=== PATIENT | female | born 1975 | race Caucasian/White ===

== ENCOUNTER 2017-02-20 08:12 | Inpatient (IN) | payer OTHER ==
[~2017-02-20 08:12] MED LIST: IBUP-2070 PO
[2017-02-20] MEDS ORDERED: RINGERS SOLUTION,LACTATED 1,000 ML IV PRN (09:55)
[2017-02-20] MEDS ORDERED: CITRIC ACID/SODIUM CITRATE 30 ML SOLUTION UDCUP PO PRN (10:00)
[2017-02-20] MEDS ORDERED: METOCLOPRAMIDE HCL 5 MG/ML 2 ML VIAL IVP PRN (10:00)
[2017-02-20 10:25] LABS: BASOPHILS % (AUTO) 0.4 % (0.0-2.0); EOSINOPHILS % (AUTO) 2.1 % (1.0-6.0); HEMATOCRIT 37.8 % (36-46); HEMOGLOBIN 12.3 g/dL (12.0-16.0); LYMPHOCYTES # (AUTO) 1.9 K/uL (1.0-4.8); LYMPHOCYTES % (AUTO) 20.9 % (22.0-44.0); MEAN CORPUSCULAR HEMOGLOBIN 30.4 pg (26.0-34.0); MEAN CORPUSCULAR HGB CONC 32.7 G/dL (31.0-37.0); MEAN CORPUSCULAR VOLUME 93 fL (80-100); MONOCYTES # (AUTO) 0.7 K/uL (0.1-1.0); MONOCYTES % (AUTO) 7.8 % (2.0-9.0); NEUTROPHILS # (AUTO) 6.4 K/uL (1.8-7.7); NEUTROPHILS % (AUTO) 68.8 % (40.0-70.0); RED BLOOD CELL COUNT(AUTO) 4.05 MIL/uL (4.00-5.20); RED CELL DISTRIBUTION WIDTH 13.5 % (11.5-14.5); WHITE BLOOD COUNT (AUTO) 9.3 K/uL (4.5-11.0)
[2017-02-20] MEDS ORDERED: OXYTOCIN 30 UNITS/LACT RINGERS 500 ML IV PRN (10:31)
[2017-02-20] MEDS ORDERED: OXYTOCIN 30 UNITS/LACT RINGERS 500 ML IV ONE (10:32)
[2017-02-20] MEDS: RINGERS SOLUTION,LACTATED 1,000 ML IV SCH ×2 (10:33→12:01)
[2017-02-20] MEDS ORDERED: FentaNYL/BUPIV 0.125%/NS/PF 200 ML ED ONE (11:34)
[2017-02-20] MEDS ORDERED: PREN1TAB80 PO (12:05)
[2017-02-20] MEDS ORDERED: FentaNYL/BUPIV 0.125%/NS/PF 200 ML ED PRN (12:18)
[2017-02-20] MEDS ORDERED: PROMETHAZINE HCL 12.5 MG in SODIUM CHLORIDE 0.9% 50 ML IV PRN (12:30)
[2017-02-20] MEDS ORDERED: NALBUPHINE HCL 10 MG/ML VIAL IVP PRN (12:30)
[2017-02-20] MEDS ORDERED: DiphenhydrAMINE HCL 50 MG/ML VIAL IVP PRN (12:30)
[2017-02-20] MEDS ORDERED: ONDANSETRON HCL 4 MG/2 ML VIAL IVP PRN (12:30)
[2017-02-20] MEDS ORDERED: GLYCERIN/WITCH HAZEL LEAF 40 PADS JAR TP PRN (14:15)
[2017-02-20] MEDS ORDERED: BENZOCAINE 20%/MENTHOL 56 GM SPRAY CANISTER TP PRN (14:15)
[2017-02-20] MEDS ORDERED: ACETAMINOPHEN/CODEINE 300-30 MG TABLET PO PRN ×2 (14:15)
[2017-02-20] MEDS ORDERED: LANOLIN 7 GM OINTMENT TP PRN (14:15)
[2017-02-20] MEDS ORDERED: IBUPROFEN 800 MG TABLET PO SCH (16:00)
[2017-02-20 17:05] VITALS: BP 122/75
[2017-02-20] MEDS ORDERED: OXYGEN THERAPY IH SCH (20:00)
[2017-02-20] MEDS: MAGNESIUM HYDROXIDE SUSPENSION 30 ML UDCUP PO SCH (20:33)
[2017-02-20] MEDS: IBUPROFEN 800 MG TABLET PO SCH (23:06)
[2017-02-21] MEDS: IBUPROFEN 800 MG TABLET PO SCH ×2 (04:36→17:00)
[2017-02-21] MEDS: MAGNESIUM HYDROXIDE SUSPENSION 30 ML UDCUP PO SCH (09:00)
[2017-02-21] MEDS ORDERED: RINGERS SOLUTION,LACTATED 1,000 ML IV ONE (09:46)
[2017-02-21] MEDS ORDERED: CeFAZolin 2 GM/DEXTROSE 50 ML IV ONE (09:46)
[2017-02-21] MEDS ORDERED: FentaNYL CITRATE-PF 100 MCG/2 ML VIAL IVP PRN (11:00)
[2017-02-21] MEDS ORDERED: MEPERIDINE-PF 25 MG/ML SYRINGE IVP PRN (11:00)
[2017-02-21] MEDS ORDERED: ACETAMINOPHEN 1000 MG/ISO-OSM 100 ML IV ONE (11:00)
[2017-02-21] MEDS ORDERED: HYDROmorphone 2 MG/ML SYRINGE IVP PRN (11:00)
[2017-02-21] MEDS ORDERED: BUPIVACAINE HCL/PF 0.25% 10 ML VIAL ONE (11:17)
[2017-02-21] MEDS ORDERED: ACETAMINOPHEN/CODEINE 300-30 MG TABLET PO ONE (14:15)
[2017-02-21] MEDS ORDERED: IBUP-1547 PO (15:53)
[2017-02-21] MEDS ORDERED: PROPOFOL 1% 20 ML VIAL IVP ONE (17:59)
[2017-02-21] MEDS ORDERED: LIDOCAINE HCL/PF 2% 5 ML VIAL IM ONE (17:59)
[2017-02-21] MEDS ORDERED: DEXAMETHASONE SOD PHOS 4 MG/ML VIAL IVP ONE (17:59)
[2017-02-21] MEDS ORDERED: SUCCINYLCHOLINE CHLORIDE 20 MG/ML 10 ML VIAL IVP ONE (17:59)
[2017-02-21] MEDS ORDERED: FentaNYL CITRATE-PF 100 MCG/2 ML VIAL IVP ONE (17:59)
[2017-02-21] MEDS ORDERED: ONDANSETRON HCL 4 MG/2 ML VIAL IVP ONE (17:59)
[2017-02-21] MEDS ORDERED: MIDAZOLAM HCL 2 MG/2 ML VIAL IVP ONE (17:59)
[2017-02-21] MEDS ORDERED: ROCURONIUM BROMIDE 10 MG/ML 5 ML VIAL IVP ONE (17:59)
[2017-02-21] MEDS ORDERED: OXYGEN THERAPY IH SCH (20:00)
== END 2017-02-21 18:00 | disposition home or self-care (01) | DRG 767 ==
LOC: 4S 08:12 → OBSVTOIN 10:00
PROVIDERS: ADMIT Obstetrics & Gynecology; ATTEND Obstetrics & Gynecology
PROC: 10E0XZZ Delivery of Products of Conception, External Approach (ICD-10-PCS; principal; 2017-02-20)
PROC: 10907ZC Drainage of Amniotic Fluid, Therapeutic from Products of Conception, Via Natural or Artificial Opening (ICD-10-PCS; 2017-02-20)
PROC: 3E0S3CZ (ICD-10-PCS; 2017-02-20)
PROC: 00HU33Z Insertion of Infusion Device into Spinal Canal, Percutaneous Approach (ICD-10-PCS; 2017-02-20)
PROC: 0UB70ZZ Excision of Bilateral Fallopian Tubes, Open Approach (ICD-10-PCS; 2017-02-21)
DX: O63.0 Prolonged first stage (of labor) (principal); O69.81X0 Labor and delivery complicated by cord around neck, without compression, not applicable or unspecified; Z37.0 Single live birth; Z3A.39 39 weeks gestation of pregnancy; Z79.899 Other long term (current) drug therapy; Z30.2 Encounter for sterilization; O09.523 Supervision of elderly multigravida, third trimester
CPT/HCPCS: 59025; 86850; 86900; 86901; 88302; J0330; J0690; J1100; J1170; J2250; J2405; J2590; J2704; J2765; J3010; J3490; J7120